=== PATIENT | female | born 1945 | race Caucasian/White ===

== ENCOUNTER 2018-06-20 06:17 | Day surgery (SDC) | payer MEDICARE ==
[~2018-06-20] VITALS: Ht 152.4 cm; Wt 75.3 kg
[~2018-06-20 06:17] MED LIST: ALEN70TA74; AMLO5TAB6; ASPI81TA85 PO; EZET10TA; LEVO750T13; METO1TAB7; NITR0.3S4; PROAAER10; SERT-138; SERT-155; SIMV20TA2; TREL1AER; VITA500045
[2018-06-20] MEDS ORDERED: LR 1,000 ML IV SCH ×2 (07:00→09:30)
[2018-06-20] MEDS ORDERED: CETACAINE SPRAY 5GM As Ordered ONE (07:15)
[2018-06-20] MEDS ORDERED: EPINEPHrine 1MG/10ML SYRINGE 1.5IN As Ordered ONE (07:15)
[2018-06-20] MEDS ORDERED: THROMBIN SOLN 5,000 UNITS VIAL As Ordered ONE (07:15)
[2018-06-20] MEDS ORDERED: LIDOCAINE VISCOUS 2% SOLN 15ML UDC As Ordered ONE (07:16)
[2018-06-20] MEDS ORDERED: LIDOCAINE 4% TOPICAL SOLN 50 ML BTL As Ordered ONE (07:16)
[2018-06-20] MEDS ORDERED: LIDOCAINE 1% SDV INJ 30 ML VIAL As Ordered ONE (07:16)
[2018-06-20] MEDS ORDERED: LIDOCAINE 2% INJ 100 MG/5 ML SDV (FOR ANES.) As Ordered ONE (08:05)
[2018-06-20] MEDS ORDERED: dexameTHASONE 4 MG/ML 1ML VIAL (J1100) As Ordered ONE (08:05)
[2018-06-20] MEDS ORDERED: fentaNYL 100 MCG/2 ML INJECTION (J3010) As Ordered ONE (08:05)
[2018-06-20] MEDS ORDERED: PROPOFOL 200 MG/20 ML VIAL As Ordered ONE (08:05)
[2018-06-20] MEDS ORDERED: ROCURONIUM BROMIDE 50 MG/5 ML VIAL As Ordered ONE (08:05)
[2018-06-20] MEDS ORDERED: ONDANSETRON 4MG/2ML VIAL (J2405) As Ordered ONE (08:05)
[2018-06-20] MEDS ORDERED: PHENYLephrine HCL 500 MCG/5 ML (100MCG/ML) SYRINGE (J2370) As Ordered ONE ×2 (08:06→08:49)
[2018-06-20] MEDS ORDERED: ePHEDrine SULFATE 25 MG/5 ML(5MG/ML) SYRINGE As Ordered ONE (08:06)
[2018-06-20] MEDS ORDERED: SUGAMMADEX SODIUM 500 MG/5 ML VIAL (BRIDION) As Ordered ONE (08:11)
--- NOTE | 2018-06-20 09:29 | RO ---
DATE OF PROCEDURE: 06/20/2018 PREPROCEDURE DIAGNOSIS: Right lower lobe lung mass. POSTPROCEDURE DIAGNOSIS: Right lower lobe lung mass with findings of endobronchial mass in the right lower lobe just distal to the right middle lobe takeoff. PROCEDURE: Fiberoptic bronchoscopy with transbronchoscopic washings, brushings, both microbiologic and cytologic, multiple biopsies and needle aspiration of the endobronchial mass, electromagnetic navigational bronchoscopy with washing, brushings, multiple biopsies and needle aspiration right lower lobe medial basilar segment mass. SURGEON: Dr. Presley Rincon ANESTHESIA: General. The patient was seen and the procedure explained to the patient as well as possible complications pertaining thereto. Written and informed consent were obtained and placed on the chart. The patient was brought to the operative suite, placed under general anesthetic. When the anesthetic had had sufficient time to take effect, a bronchoscope was placed in through the endotracheal tube and into the trachea. The ella was sharp. The airways of the left lung were examined in subsegmental fashion for any evidence of tumor, ulcer, necrosis, vessel engorgement, or mucosal irregularity. Finding none. The bronchoscope was retracted to the level of the ella and reintroduced in the right mainstem bronchus. Right upper lobe and right middle lobe were found patent and normal appearing. Just distal to the right middle lobe takeoff emanating from the posterior wall of the right lower lobe bronchus was an endobronchial mass. The mass was round, appeared vascular and photographs were taken. Thereafter microbiologic brushing was performed of this site, cytology brushes were obtained, multiple biopsies and a needle aspiration. Tissue samples obtained were forwarded to the lab for analysis. The bronchoscope was then retracted into the trachea and navigational probe placed into the bronchoscope. The scope was then placed through the airway into the right lower lobe distal to the endobronchial lesion and into the medial basilar segment of the right lower lobe. Using navigational guidance, the lesion appreciated on CT scan was identified and under fluoroscopic guidance, transbronchoscopic cytologic brushing, multiple biopsies and needle aspiration was performed of the right lower lobe. When sufficient tissue had been obtained, the area was topically addressed with saline and epinephrine. When no further bleeding could be appreciated, the bronchoscope was retracted out through the patient's endotracheal tube, anesthesia was reversed and she was transferred to the recovery room. She tolerated the procedure well, suffered no apparent complication. A postprocedural chest x-ray is pending.
[2018-06-20] MEDS ORDERED: METOCLOPRAMIDE INJ 10MG/2ML VIAL (J2765) IV PRN (09:30)
[2018-06-20] MEDS ORDERED: NORCO, ANEXSIA 5/325MG TABLET (HYDROcodone/ACETAMINOPHEN) PO PRN (09:30)
[2018-06-20] MEDS ORDERED: fentaNYL 100 MCG/2 ML INJECTION (J3010) IV PRN (09:30)
--- NOTE | 2018-06-20 09:53 | REP ---
Chest x-ray: Single view. History: Abnormal x-ray. 2 minutes 40 seconds of fluoroscopy time is reported. Findings: A single fluoroscopically obtained last image hold spot radiograph of the chest documents bronchoscopy position. Electronically Signed by Yang Mustafa MD 06/20/2018 10:45 A
--- NOTE | 2018-06-20 09:55 | REP ---
PORTABLE CHEST X-RAY: Single view. HISTORY: Postop evaluation. No comparison imaging. FINDINGS: There are pleuroparenchymal linear densities in the left base consistent with discoid atelectasis. No pleural effusion is seen. There is no evidence of pneumothorax. The right lung appears clear. Mediastinum is not widened. Heart size is normal. No significant bony abnormality. Oxygen delivery tubing and EKG electrodes are seen. IMPRESSION: Plate-like atelectatic changes on the left. Electronically Signed by Yang Mustafa MD 06/20/2018 10:45 A
[2018-06-20 10:08] VITALS: BP 111/66
== END 2018-06-20 11:00 | disposition home or self-care (01) ==
LOC: M SDC 06:17
PROVIDERS: ATTEND Internal Medicine Pulmonary Disease
DX: C34.31 Malignant neoplasm of lower lobe, right bronchus or lung (principal); J43.1 Panlobular emphysema; R09.02 Hypoxemia; I25.10 Atherosclerotic heart disease of native coronary artery without angina pectoris; F17.210 Nicotine dependence, cigarettes, uncomplicated; Z88.0 Allergy status to penicillin
CPT/HCPCS: 31623; 31627; 31628; 31629; 71045; 76000; 87070; 87071; 87102; 87116; 87205; 87206; 88104; 88173; 88305; 88313; 88342; J1100; J2370; J2405; J3010

== ENCOUNTER → 2018-07-18 | Outpatient (CLI) | payer MEDICARE ==
[~2018-07-18] MED LIST changes: -EZET10TA; +EZET10TA21
--- NOTE | 2018-07-19 16:10 | REP ---
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 COMPARISON: Outside prior CT not available. After the intravenous administration of 9.26 mCi of FDG-18 triplane whole body PET/CT was performed from the skull base to the mid thigh. The CT component of today's PET/CT shows no abnormal nodule in the right lung lower lobe. A few scattered areas of density are seen particularly in the lung bases likely subsegmental atelectatic change or fibrotic change. Today's CT/PET shows no abnormal hypermetabolic activity in the neck, chest, abdomen or pelvis. IMPRESSION: Negative PET scan. Electronically Signed by Norbert Fletcher DO 07/19/2018 04:59 P
== END ==
LOC: M PLARAD 07:07
PROVIDERS: ATTEND Internal Medicine Pulmonary Disease
DX: Z85.110 Personal history of malignant carcinoid tumor of bronchus and lung (principal); R91.8 Other nonspecific abnormal finding of lung field
CPT/HCPCS: 78815; A9552

== ENCOUNTER → 2018-08-29 | Outpatient (CLI) | payer MEDICARE ==
[~2018-08-29] MED LIST changes: -SERT-155; +SERT50TA29; -SIMV20TA2; +SIMV20TA22
--- NOTE | 2018-08-31 16:42 | REP ---
WHOLE BODY OCTREOSCAN WITH SPECT IMAGING: Following the intravenous administration of 6.4 mCi Indium-111 Octreoscan multiple images are obtained of the whole body in various projections with the fist images obtained four hours post injection, another set 24 hours and yet another set 48 hours post injection. SPECT images are obtained in the axial, coronal and sagittal planes. There is normal homogeneous activity seen in the liver, spleen, and kidneys. Excreted activity is seen in the bladder. Delayed images show activity in portions of the bowel. No focal neoplastic uptake is visualized. IMPRESSION: No abnormal Octreoscan uptake identified. No neoplastic uptake is seen scintigraphically. Electronically Signed by Tristian Nguyen MD 09/03/2018 07:18 P
== END ==
LOC: M RAD 08:32
PROVIDERS: ATTEND Internal Medicine Pulmonary Disease
DX: C7A.00 Malignant carcinoid tumor of unspecified site (principal)
CPT/HCPCS: 78803; 78804; A9572